=== PATIENT | male | born 1960 ===

== ENCOUNTER 2016-05-31 11:19 | Emergency (ER) | payer OTHER ==
[2016-05-31 12:14] VITALS: BMI 29.2
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
[2016-05-31 12:18] VITALS: BP 135/74; PULSE 94; RESP 16; TEMP 98; O2SAT 100
== END 2016-05-31 12:45 | disposition home or self-care (01) ==
LOC: H.ER 11:19
DX: Z48.00 Encounter for change or removal of nonsurgical wound dressing (principal); Z48.817 Encounter for surgical aftercare following surgery on the skin and subcutaneous tissue

== ENCOUNTER 2017-04-05 19:04 | Emergency (ER) | payer BC, OTHER ==
[2017-04-05 19:05] VITALS: BMI 29.2
[2017-04-05 19:13] VITALS: BP 131/81; PULSE 89; RESP 18; TEMP 98.4
--- NOTE | 2017-04-05 20:18 | ED PDOC ---
HPI: General Adult Time Seen by Provider: 04/05/17 19:17 Chief Complaint (Nursing): Shortness Of Breath Chief Complaint (Provider): Throat Pain History Per: Patient History/Exam Limitations: no limitations Onset/Duration Of Symptoms: Days (x2) Current Symptoms Are (Timing): Still Present Additional Complaint(s): 56 year old male presents to the ED complaining of throat pain with associated hoarse voice and difficulty breathing, onset 2 days ago. Symptoms have been worsening since onset, and the pain worsens on swallowing. No medications taken prior to arrival. Patient denies any cough or rhinorrhea. Reports he has had some shortness of breath consistent with asthma attack but currently he denies feeling short of breath. No sick contacts or recent travel. PMD: Non-[facility] provider Past Medical History Reviewed: Historical Data, Nursing Documentation, Vital Signs Vital Signs: Last Vital Signs Temp 98.4 F 04/05/17 19:13 Pulse 89 04/05/17 19:13 Resp 18 04/05/17 19:13 BP 131/81 04/05/17 19:13 Pulse Ox 96 04/05/17 20:29 - Medical History PMH: Asthma, Diabetes (type II), Gastritis, HTN Denies: HIV, Chronic Kidney Disease - Surgical History Surgical History: Appendectomy, Hernia Repair - Family History Family History: States: Unknown Family Hx - Social History Current smoker - smoking cessation education provided: No Alcohol: None - Immunization History Hx Tetanus Toxoid Vaccination: No (not sure of last tetanus) - Home Medications Home Medications: Ambulatory Orders Medication Instructions Recorded Famotidine [Pepcid] 20 mg PO BID #28 tab 03/14/16 Clindamycin [Cleocin] 300 mg PO TID #30 cap 05/07/16 Ibuprofen [Motrin Tab] 800 mg PO Q8 PRN #20 tab 05/07/16 Silver Sulfadiazine 1% 50 gm 1 unit TOP BID #1 jar 05/07/16 [Silvadene] Silver Sulfadiazine 1% 50 gm 0.5 gm EXT BID #1 jar 05/31/16 [Silvadene 1% 50 gm] Albuterol HFA [Ventolin HFA 90 2 puff IH Q4H PRN #1 inh 04/05/17 mcg/actuation (8 g)] Amoxicillin/Clavulanate [Augmentin 1 tab PO BID #14 tab 04/05/17 875 MG-125 MG] Ibuprofen [Motrin Tab] 600 mg PO Q8 PRN #30 tab 04/05/17 - Allergies Allergies/Adverse Reactions: Allergies Allergy/AdvReac Type Severity Reaction Status Date / Time No Known Allergies Allergy Verified 05/31/16 12:15 Review of Systems ROS Statement: Except As Marked, All Systems Reviewed And Found Negative (as per HPI otherwise negative) ENT: Positive for: Throat Pain, Other (hoarse voice). Negative for: Nose Discharge, Nose Congestion Respiratory: Positive for: Shortness of Breath. Negative for: Cough Physical Exam - Reviewed Nursing Documentation Reviewed: Yes Vital Signs Reviewed: Yes - ECG O2 Sat by Pulse Oximetry: 94 (RA) Medical Decision Making Medical Decision Making: Initial Impression: Pharyngitis, URI Differential includes but is not limited to: influenza and strep. Time: 19:51 Initial Plan: * Influenza A B * Rapid strep test * Accucheck * EKG * Chest x-ray * Reassessment Labs reviewed, negative for strep and flu. Viewed chest x-ray, no acute disease. 22:05 Patient is medically stable. Will d/c home with antibiotics, motrin, and ventolin inhaler. Counseling was provided and all questions were answered regarding diagnosis and need for follow up with PMD. There is agreement to discharge plan. Return if symptoms persist or worsen. Scribe Attestation: Documented by Ratna Magana, acting as a scribe for Betty Melgar MD Provider Scribe Attestation: All medical record entries made by the Scribe were at my direction and personally dictated by me. I have reviewed the chart and agree that the record accurately reflects my personal performance of the history, physical exam, medical decision making, and the department course for this patient. I have also personally directed, reviewed, and agree with the discharge instructions and disposition. Disposition - Clinical Impression Clinical Impression: Asthma exacerbation, Pharyngitis - Patient ED Disposition Is Patient to be Admitted: No Counseled Patient/Family Regarding: Studies Performed, Diagnosis, Need For Followup, Rx Given - Disposition Referrals: [facility] [Outside] - 04/06/17 Disposition: Routine/Home Disposition Time: 22:05 Condition: STABLE Prescriptions: Albuterol HFA [Ventolin HFA 90 mcg/actuation (8 g)] 2 puff IH Q4H PRN #1 inh PRN Reason: ASTHMA Amoxicillin/Clavulanate [Augmentin 875 MG-125 MG] 1 tab PO BID #14 tab Ibuprofen [Motrin Tab] 600 mg PO Q8 PRN #30 tab PRN Reason: Pain, Moderate (4-7) Instructions: Asthma (ED), Pharyngitis (ED) Print Language: NORTH KOREAN - POA Present On Arrival: None
[2017-04-05 22:46] VITALS: O2SAT 94
--- NOTE | 2017-04-06 11:19 | CARD ---
APPROVED REPORT EKG Measurement Heart [id number] <Conclusion> Normal sinus rhythm Left axis deviation Right bundle branch block Abnormal ECG
--- NOTE | 2017-04-06 12:47 | RAD ---
HISTORY: chest pain sob COMPARISON: Comparison is made with 08/17/2015 TECHNIQUE: Chest PA and lateral FINDINGS: LUNGS: No evidence of new infiltrate or consolidation in the lungs. PLEURA: No significant pleural effusion identified. No pneumothorax apparent. CARDIOVASCULAR: Normal. OSSEOUS STRUCTURES: No significant abnormalities. VISUALIZED UPPER ABDOMEN: Normal. OTHER FINDINGS: None. IMPRESSION: No active disease.
== END 2017-04-05 22:50 | disposition home or self-care (01) ==
LOC: H.ER 19:04
DX: J45.901 Unspecified asthma with (acute) exacerbation (principal); J02.9 Acute pharyngitis, unspecified; I10 Essential (primary) hypertension; E11.9 Type 2 diabetes mellitus without complications

== ENCOUNTER 2017-04-13 15:51 | Emergency (ER) | payer OTHER ==
[2017-04-13 15:52] VITALS: BMI 29.2
[2017-04-13 17:54] LABS: BASO % 0.5 % (0.0-2.0); EOS # 0.4 K/uL (0.0-0.7); EOS % 4.4 % (0.0-4.0); HEMOGLOBIN 14.3 g/dL (12.0-18.0); LYMPH # 2.7 K/uL (1.0-4.3); LYMPH % 32.7 % (20.0-40.0); MEAN CELL VOLUME 86.8 fl (80.0-94.0); MEAN CORPUSCULAR HEMOGLOBIN 28.1 pg (27.0-31.0); MEAN CORPUSCULAR HGB CONC 32.4 g/dL (33.0-37.0); MEAN PLATELET VOLUME 8.2 fl (7.2-11.7); MONO # 0.5 K/uL (0.0-0.8); MONO % 6.7 % (0.0-10.0); NEUT # 4.6 K/uL (1.8-7.0); NEUT % 55.7 % (50.0-75.0); NRBC % 0.5 % (0.0-0.0); RBC 5.07 Mil/uL (4.40-5.90); WHITE BLOOD COUNT 8.2 K/uL (4.8-10.8)
[2017-04-13 18:12] LABS: CALCIUM 8.8 mg/dL (8.4-10.2); GFR AFRICAN-AMERICAN > 60; GFR NON-AFRICAN AMERICAN > 60
--- NOTE | 2017-04-13 18:13 | RAD ---
PROCEDURE: CHEST RADIOGRAPH, 1 VIEW HISTORY: chest pain COMPARISON: 04/05/2017 FINDINGS: LUNGS: The lungs are well inflated and clear. PLEURA: No pneumothorax or pleural fluid seen. CARDIOVASCULAR: There is mild cardiac. OSSEOUS STRUCTURES: No significant abnormalities. VISUALIZED UPPER ABDOMEN: Normal. OTHER FINDINGS: None. IMPRESSION: No active pulmonary disease.
[2017-04-13 18:15] LABS: BLOOD UREA NITROGEN 15 mg/dl (9-20)
--- NOTE | 2017-04-13 18:30 | ED PDOC ---
Upper Extremity Pain/Injury Time Seen by Provider: 04/13/17 16:48 Chief Complaint (Nursing): Chest Pain Chief Complaint (Provider): Right shoulder pain and chest pain History Per: Patient History/Exam Limitations: no limitations Onset/Duration Of Symptoms: Days (1x) Current Symptoms Are (Timing): Still Present Quality: "Pain" Additional Complaint(s): Brandyn Naik, a 56 year old male presents to the ED complaining of chest pain and right-side shoulder pain onset one day ago. Reports he feels pain whenever he moves. 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 Also has history of asthma. Denies cough or leg swelling. PMD: [facility] Past Medical History Reviewed: Historical Data, Nursing Documentation, Vital Signs Vital Signs: Last Vital Signs Temp 98.4 F 04/13/17 16:04 Pulse 76 04/13/17 16:04 Resp 16 04/13/17 16:04 BP 151/89 H 04/13/17 16:04 Pulse Ox 96 04/13/17 16:04 - Medical History PMH: Asthma, Diabetes (type II), Gastritis, HTN Denies: HIV, Chronic Kidney Disease - Surgical History Surgical History: Appendectomy, Hernia Repair - Family History Family History: States: Unknown Family Hx - Immunization History Hx Tetanus Toxoid Vaccination: No (not sure of last tetanus) - Home Medications Home Medications: Ambulatory Orders Medication Instructions Recorded Famotidine [Pepcid] 20 mg PO BID #28 tab 03/14/16 Clindamycin [Cleocin] 300 mg PO TID #30 cap 05/07/16 Ibuprofen [Motrin Tab] 800 mg PO Q8 PRN #20 tab 05/07/16 Silver Sulfadiazine 1% 50 gm 1 unit TOP BID #1 jar 05/07/16 [Silvadene] Silver Sulfadiazine 1% 50 gm 0.5 gm EXT BID #1 jar 05/31/16 [Silvadene 1% 50 gm] Albuterol HFA [Ventolin HFA 90 2 puff IH Q4H PRN #1 inh 04/05/17 mcg/actuation (8 g)] Amoxicillin/Clavulanate [Augmentin 1 tab PO BID #14 tab 04/05/17 875 MG-125 MG] Ibuprofen [Motrin Tab] 600 mg PO Q8 PRN #30 tab 04/05/17 Cyclobenzaprine [Cyclobenzaprine 10 mg PO TID #15 tab 04/13/17 HCl] Naproxen 500 mg PO BID #20 tab 04/13/17 - Allergies Allergies/Adverse Reactions: Allergies Allergy/AdvReac Type Severity Reaction Status Date / Time No Known Allergies Allergy Verified 04/13/17 16:04 Review of Systems ROS Statement: Except As Marked, All Systems Reviewed And Found Negative Cardiovascular: Positive for: Chest Pain Respiratory: Negative for: Cough Musculoskeletal: Positive for: Shoulder Pain (right). Negative for: Other (leg swelling) Physical Exam - Reviewed Nursing Documentation Reviewed: Yes Vital Signs Reviewed: Yes - Physical Exam Appears: Positive for: Well, Non-toxic, No Acute Distress Head Exam: Positive for: ATRAUMATIC, NORMAL INSPECTION, NORMOCEPHALIC Skin: Positive for: Normal Color, Warm, Dry Eye Exam: Positive for: EOMI, Normal appearance, PERRL ENT: Positive for: Normal ENT Inspection Neck: Positive for: Normal, Painless ROM, Supple. Negative for: Decreased ROM Cardiovascular/Chest: Positive for: Regular Rate, Rhythm, Other (palpitations to right chest wall). Negative for: Murmur, Bradycardia Respiratory: Positive for: Normal Breath Sounds. Negative for: Accessory Muscle Use, Wheezing, Respiratory Distress Gastrointestinal/Abdominal: Positive for: Normal Exam, Bowel Sounds, Soft. Negative for: Tenderness Back: Positive for: Normal Inspection. Negative for: L CVA Tenderness, R CVA Tenderness Extremity: Positive for: Other (right shoulder pain) Neurologic/Psych: Positive for: Alert, Oriented (x3) - Laboratory Results Result Diagrams: 04/13/17 17:35 04/13/17 17:35 - ECG O2 Sat by Pulse Oximetry: 96 (RA) Pulse Ox Interpretation: Normal Medical Decision Making Medical Decision Making: Time: 16:55 Initial Impression: Chest pain and Right shoulder pain Differential Diagnosis includes but is not limited to: Musculoskeletal rule out ACS Initial Plan: --EKG --BMP --Troponin I --CBC --Chest X-ray --Flexeril 10mg --Toradol 30mg --Reevaluation Time: 19:01 FINDINGS: LUNGS: The lungs are well inflated and clear. PLEURA: No pneumothorax or pleural fluid seen. CARDIOVASCULAR: There is mild cardiac. OSSEOUS STRUCTURES: No significant abnormalities. VISUALIZED UPPER ABDOMEN: Normal. OTHER FINDINGS: None. IMPRESSION: No active pulmonary disease. Clinical Impression: Chest pain Upon provider evaluation patient is medically stable, and requires no further treatment in the ED at this time. Patient will be discharged with Naprosyn and percocet 5/325mg. Counseling was provided and all questions were answered regarding diagnosis and need for follow up with PMD. There is agreement to discharge plan. Return if symptoms persist or worsen. Documented by Maykel Collado acting as a scribe for Christine Vale MD. All medical record entries made by the Scribe were at my direction and personally dictated by me. I have reviewed the chart and agree that the record accurately reflects my personal performance of the history, physical exam, medical decision making, and the department course for this patient. I have also personally directed, reviewed, and agree with the discharge instructions and disposition. Disposition - Clinical Impression Clinical Impression: Chest pain - Patient ED Disposition Is Patient to be Admitted: No Doctor Will See Patient In The: Office Counseled Patient/Family Regarding: Studies Performed, Diagnosis, Need For Followup - Disposition Referrals: [facility] [Outside] Disposition: Routine/Home Disposition Time: 19:12 Condition: GOOD Additional Instructions: Takee your medications as instructed. Follow up with your PCP in 2-3 days. Prescriptions: Cyclobenzaprine [Cyclobenzaprine HCl] 10 mg PO TID #15 tab Naproxen 500 mg PO BID #20 tab Instructions: Chest Pain (ED) Print Language: SERBIAN
[2017-04-13 19:39] VITALS: BP 122/76; PULSE 98; RESP 18; TEMP 97.8; O2SAT 94
--- NOTE | 2017-04-14 11:00 | CARD ---
APPROVED REPORT EKG Measurement Heart [id number] <Conclusion> Normal sinus rhythm Right bundle branch block Abnormal ECG
== END 2017-04-13 19:39 | disposition home or self-care (01) ==
LOC: H.ER 15:51
DX: M25.511 Pain in right shoulder (principal); R07.89 Other chest pain; J45.909 Unspecified asthma, uncomplicated; I10 Essential (primary) hypertension; E11.9 Type 2 diabetes mellitus without complications
CPT/HCPCS: 71045; 80048; 84484; 85025; 93005; 96372; 99283; J1885